=== PATIENT | female | born 1990 | race Caucasian/White ===

== ENCOUNTER 2017-03-20 21:38 | Emergency (ER) | payer OTHER ==
[~2017-03-20] VITALS: Ht 162.6 cm; Wt 98.9 kg
[~2017-03-20 21:38] MED LIST: CATAFLAM50 MG PO; NO MEDICATIONS
[2017-03-20 22:46] LABS: URINE SOURCE CLEAN CATCH
[2017-03-20 22:48] LABS: URINE APPEARANCE CLEAR; URINE BILIRUBIN NEG (NEG); URINE COLOR YELLOW; URINE GLUCOSE NEG (NORM); URINE KETONE TRACE (NEG); URINE LEUKOCYTE ESTERASE NEG (NEG); URINE NITRATE NEG (NEG); URINE PROTEIN NEG (NEG); URINE SPECIFIC GRAVITY 1.025 (1.003-1.035); URINE UROBILINOGEN 0.2 MG/DL (NORM)
[2017-03-20 22:49] LABS: URINE BLOOD NEG (NEG)
[2017-03-20 22:50] LABS: MICRO INDICATED? NO
[2017-03-23 13:44] LABS: CHLAMYDIA TRACH Not Detected (Not Detected); N GONOR Not Detected (Not Detected)
== END 2017-03-21 00:04 | disposition home or self-care (01) ==
LOC: SED 21:38
PROVIDERS: Physician Assistant Medical
DX: Z20.2 Contact with and (suspected) exposure to infections with a predominantly sexual mode of transmission (principal); F17.210 Nicotine dependence, cigarettes, uncomplicated; Z98.890 Other specified postprocedural states
CPT/HCPCS: 81003; 84703; 87210; 87491; 87591; 87808; 87905; 99283